=== PATIENT | male | born 1990 ===

== ENCOUNTER → 2023-11-26 | Outpatient (CLI) | payer BC | LOC: MHCPAIN 09:21 | DX: M54.16 Radiculopathy, lumbar region (principal); M51.27 Other intervertebral disc displacement, lumbosacral region | CPT/HCPCS: G0463 ==

== ENCOUNTER → 2024-01-28 | Outpatient (CLI) | payer BC | LOC: MHCPAIN 14:55 | DX: M51.26 Other intervertebral disc displacement, lumbar region (principal); M54.16 Radiculopathy, lumbar region | CPT/HCPCS: G0463 ==

== ENCOUNTER → 2024-05-04 | Outpatient (CLI) | payer BC | LOC: MHCPAIN 10:13 | DX: M54.17 Radiculopathy, lumbosacral region (principal); M51.27 Other intervertebral disc displacement, lumbosacral region; M51.369 Other intervertebral disc degeneration, lumbar region without mention of lumbar back pain or lower extremity pain; M47.812 Spondylosis without myelopathy or radiculopathy, cervical region | CPT/HCPCS: G0463 ==